=== PATIENT | male | born 1955 | race Caucasian/White ===

== ENCOUNTER 2019-01-28 21:48 | Inpatient (IN) | payer MEDICAID, OTHER ==
[~2019-01-28] VITALS: Ht 177.8 cm; Wt 80.8 kg
[2019-01-28 22:03] VITALS: Ht 177.8 cm; Wt 80.8 kg
[2019-01-28] MEDS ORDERED: SOD CHLORIDE 0.9% 500 ML IV STA (22:05)
[2019-01-28] MEDS ORDERED: ONDANSETRON 4 MG INJ IV STA (22:05)
[2019-01-28] MEDS ORDERED: morphine 4 MG/ML VIAL IV STA (22:05)
[2019-01-29] VITALS (13 sets, daily range): BP systolic 110–125; BP diastolic 53–78; PULSE 75–90; RESP 18–20
[2019-01-29] MEDS ORDERED: DEXTROSE 5%-0.45% NACL 1,000 ML IV SCH (04:44)
[2019-01-29] MEDS ORDERED: NACL 0.9% 3 ML SYG IV SCH (05:00)
[2019-01-29] MEDS ORDERED: ALBUTEROL/IPRATROPIUM (NEB) 3 ML AMP HHN PRN (05:00)
[2019-01-29] MEDS ORDERED: ONDANSETRON 4 MG INJ IV PRN (05:00)
[2019-01-29] MEDS: morphine 2 MG INJ IV PRN (06:25)
[2019-01-29] MEDS: DEXTROSE 5%-0.9% NACL 1,000 ML IV SCH ×2 (06:25→17:06)
--- NOTE | 2019-01-29 06:42 | HP ---
Date/Time of Note Date/Time of Note DATE: 01/29/19 TIME: 06:35 Assessment/Plan VTE Prophylaxis Pharmacological prophylaxis: heparin Lines/Catheters IV Catheter Type (from Nrs): PORTHA-CATH Urinary Cath still in place: No Assessment/Plan Assessment/Plan 1. 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 He does have a pigtail placed for ascites. -CT shows free intraperitoneal air. ?2/2 pigtail placement VS although perforated hollow viscus not excluded. Lipase is also elevated and CT suggestive of acute pancreatitis -will keep n.p.o. for now -Pain management -GI and surgical consult 2. Adenocarcinoma, of "my lymph nodes": CT shows solid lung nodule, ? Metastasis -pt has a right portacath -Oncology consult 3. Acute pancreatitis: -Keep n.p.o. with IV fluid -Pain management -See #1 4. Acute renal insufficiency -IV fluid -Renal ultrasound -Urine electrolytes -Nephrology consult 5. Metabolic acidosis: Secondary to #4 6. decompensated liver cirrhosis with recurrent ascites -pt has pigtail, which nurse should drain everyday Result Diagram: 01/29/19 0526 01/28/19 2240 Results 24hrs Laboratory Tests Test 01/28/19 22:40 01/29/19 01:45 01/29/19 05:26 White Blood Count 14.7 H 13.9 H Red Blood Count 3.46 L 3.21 L Hemoglobin 10.2 L 9.5 L Hematocrit 29.9 L 27.6 L Mean Corpuscular Volume 86.4 86.0 Mean Corpuscular Hemoglobin 29.5 29.6 Mean Corpuscular Hemoglobin Concent 34.1 34.4 Red Cell Distribution Width 16.5 H 16.3 H Platelet Count 99 L 92 L Mean Platelet Volume 9.4 9.7 Immature Granulocytes % 4.800 H 2.700 H Neutrophils % 75.5 75.5 Lymphocytes % 2.8 L 3.2 L Monocytes % 12.8 H 14.2 H Eosinophils % 3.6 4.0 Basophils % 0.5 0.4 Nucleated Red Blood Cells % 0.0 0.0 Immature Granulocytes # 0.700 H 0.370 H Neutrophils # 11.1 H 10.5 H Lymphocytes # 0.4 L 0.4 L Monocytes # 1.9 H 2.0 H Eosinophils # 0.5 0.6 H Basophils # 0.1 0.1 Nucleated Red Blood Cells # 0.0 0.0 Prothrombin Time 14.2 Prothrombin Time Ratio 1.1 INR International Normalized Ratio 1.09 Activated Partial Thromboplast Time 33.2 Sodium Level 126 L Potassium Level 5.6 H Chloride Level 95 L Carbon Dioxide Level 13 L Anion Gap 18 H Blood Urea Nitrogen 70 H Creatinine 1.41 H Est Glomerular Filtrat Rate mL/min 51 L Glucose Level 100 Calcium Level 9.1 Total Bilirubin 0.7 Direct Bilirubin 0.00 Indirect Bilirubin 0.7 Aspartate Amino Transf (AST/SGOT) 85 H Alanine Aminotransferase (ALT/SGPT) 37 Alkaline Phosphatase 134 H Total Protein 6.9 Albumin 3.8 Globulin 3.10 Albumin/Globulin Ratio 1.22 Lipase 412 H Urine Color YELLOW Urine Clarity CLEAR Urine pH 5.0 Urine Specific [place] 1.015 Urine Ketones NEGATIVE Urine Nitrite NEGATIVE Urine Bilirubin NEGATIVE Urine Urobilinogen NEGATIVE Urine Leukocyte Esterase NEGATIVE Urine Hemoglobin NEGATIVE Urine Glucose NEGATIVE Urine Total Protein NEGATIVE HPI/ROS Admit Date/Time Admit Date/Time Jan 29, 2019 at 02:02 Hx of Present Illness This is an 63-year-old quadriplegic male with a history of liver cirrhosis with recurrent ascites requiring pigtail placement, , adenocarcinoma (per patient of his lymph nodes, diagnosed 5 years ago) who presented to ER complaining of abdominal pain. Patient does have a chronic abdominal pain, which acutely worsened. The pain is diffuse. Also reported abdominal distention. He said about 2L of ascites fluid is drained from his pigtail every day. 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 Labs in the ER shows sodium of 126, potassium 5.6, bicarb 13, creatinine 1.4, BUN 70. Lipase around 400, AST 85. WBC almost 15,000. When he presented to ER, CT abdomen/pelvis shows the followin. Cirrhotic liver with splenomegaly indicating portal hypertension. 2. 8.1 mm solid nodule medial inferior left lower lobe. 3. 10 mm mass versus noncalcified gallstone in the gallbladder. 4. Atrophic pancreas with acute pancreatitis enlarged peripancreatic lymph nodes. 5. Intraperitoneal catheter, terminating in the right lateral pelvis. 6. Free intraperitoneal air. Is also air in and around the umbilicus. Intraper itoneal air may be due to recent intraperitoneal catheter placement. Perforated hollow viscus not excluded. 7. Marked retroperitoneal adenopathy. Consider lymphoma. 8. Small amount of free fluid adjacent to the liver and posterior spleen. 9. Edema versus inflammatory stranding adjacent to the sigmoid colon. No significant diverticulosis. 10. Findings suspicious for proctitis with maxi rectal inflammatory stranding. PMH/Family/Social Past Medical History Past Surgical History Past Surgical Hx: other (see hpi) Family History Significant Family History: other Social History Smoking Status: Unknown if ever smoked Drug Use: other Exam Constitutional: other (no acute distress) Eyes: EOMI, PERRL Neck: supple Respiratory: normal air movement Cardiovascular: nl pulses Gastrointestinal: soft Extremities: normal pulses Medications Current Medications IV Flush (NS 3 ml) 3 ml PER PROTOCOL IV ; Start 01/29/19 at 05:00 Ondansetron HCl (Zofran Inj) 4 mg Q6H PRN IV NAUSEA/VOMITING; Start 01/29/19 at 05:00 Morphine Sulfate (morphine) 2 mg Q4H PRN IV .PAIN 7-10 Last administered on 01/29/19at 06:25; Admin Dose 2 MG; Start 01/29/19 at 05:00 Albuterol/ Ipratropium (Duoneb) 3 ml Q2H RESP THERAPY PRN HHN SHORTNESS OF BREATH; Start 01/29/19 at 05:00 Dextrose/Sodium Chloride 1,000 ml @ 100 mls/hr Q10H IV Last administered on at 06:25; Admin Dose 100 MLS/HR; Start 01/29/19 at 05:00 Coded Allergies: sulfamethoxazole (Verified Allergy, Unknown, 01/28/19) trimethoprim (Verified Allergy, Unknown, 01/28/19) Social History Smoking Status: Never smoker Exam/Review of Systems Vital Signs Vitals Vital Signs Date Temp Pulse Resp B/P (MAP) Pulse Ox O2 O2 Flow FiO2 Time Delivery Rate 01/29/19 97.8 85 18 110/53 97 04:51 (72) 01/29/19 Room Air 03:49 Exam Gastrointestinal: other (pigtail in place) MAVIS BINGHAM MD Jan 29, 2019 06:42
[2019-01-29] MEDS ORDERED: FUROSEMIDE 20 MG INJ IV ONE (11:00)
[2019-01-29] MEDS: RIFAXIMIN 550 MG TAB PO SCH ×2 (12:34→22:19)
[2019-01-29] MEDS: CEFTRIAXONE 1 GM/50 ML (PMX) 50 ML IVPB SCH (12:40)
--- NOTE | 2019-01-29 14:43 | PN ---
Date/Time of Note Date/Time of Note DATE: 01/29/19 TIME: 14:34 Assessment/Plan VTE Prophylaxis Risk score (from [facility] [place])>0 risk: 10 SCD applied (from [facility] [place]): Yes Pharmacological prophylaxis: NA/contraindicated Pharm contraindication: liver dx Lines/Catheters [facility]from [facility] portacath Urinary Cath still in place: No Assessment/Plan Hospital Course 1. Abdominal pain likely secondary to pancreatitis and/or SBP Patient does have a history of peritonitis in the past and does have an intraperitoneal catheter for recurrent ascites Follow-up on ascitic fluid culture Empiric Rocephin 2. History of lymphoma Patient does have a Port-A-Cath and receives chemotherapy No indication for inpatient oncological consultation 3. Acute pancreatitis-idiopathic Unclear etiology but patient does have enlarged lymph nodes adjacent to the pancreas, patient is also on chemotherapy Patient denies alcohol abuse N.p.o. and IV fluids Pain control 4. Acute renal insufficiency likely related to cirrhosis and sepsis Continue IV fluids Nephrology consultation 5. Sepsis likely secondary to peritonitis Empiric Rocephin 6. 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 Ammonia level is normal but patient does seem lethargic, patient does not tolerate lactulose but does take rifaximin and so will continue new Prophylaxis: SCDs Result Diagram: 01/29/1952501/29/19525 Results 24hrs Laboratory Tests Test 01/28/19 22:40 01/29/19 01:45 01/29/19 05:26 01/29/19 11:16 White Blood Count 14.7 H 13.9 H Red Blood Count 3.46 L 3.21 L Hemoglobin 10.2 L 9.5 L Hematocrit 29.9 L 27.6 L Mean Corpuscular 86.4 86.0 Volume Mean Corpuscular 29.5 29.6 Hemoglobin Mean Corpuscular 34.1 34.4 Hemoglobin Concent Red Cell 16.5 H 16.3 H Distribution Width Platelet Count 99 L 92 L Mean Platelet Volume 9.4 9.7 Immature 4.800 H 2.700 H Granulocytes % Neutrophils % 75.5 75.5 Lymphocytes % 2.8 L 3.2 L Monocytes % 12.8 H 14.2 H Eosinophils % 3.6 4.0 Basophils % 0.5 0.4 Nucleated Red Blood 0.0 0.0 Cells % Immature 0.700 H 0.370 H Granulocytes # Neutrophils # 11.1 H 10.5 H Lymphocytes # 0.4 L 0.4 L Monocytes # 1.9 H 2.0 H Eosinophils # 0.5 0.6 H Basophils # 0.1 0.1 Nucleated Red Blood 0.0 0.0 Cells # Prothrombin Time 14.2 Prothrombin Time 1.1 Ratio INR International 1.09 Normalized Ratio Activated 33.2 Partial Thromboplast Time Sodium Level 126 L 127 L Potassium Level 5.6 H 5.7 H Chloride Level 95 L 98 Carbon Dioxide Level 13 L 16 L Anion Gap 18 H 13 Blood Urea Nitrogen 70 H 67 H Creatinine 1.41 H 1.31 H Est Glomerular 51 L 55 L Filtrat Rate mL/min Glucose Level 100 97 Calcium Level 9.1 8.8 Total Bilirubin 0.7 0.8 Direct Bilirubin 0.00 0.00 Indirect Bilirubin 0.7 0.8 Aspartate Amino 85 H 78 H Transf (AST/SGOT) Alanine 37 33 Aminotransferase (AL T/SGPT) Alkaline Phosphatase 134 H 115 Total Protein 6.9 6.4 Albumin 3.8 3.4 Globulin 3.10 3.00 Albumin/Globulin 1.22 1.13 Ratio Lipase 412 H Urine Color YELLOW Urine Clarity CLEAR Urine pH 5.0 Urine Specific 1.015 [place] Urine Ketones NEGATIVE Urine Nitrite NEGATIVE Urine Bilirubin NEGATIVE Urine Urobilinogen NEGATIVE Urine Leukocyte NEGATIVE Esterase Urine Hemoglobin NEGATIVE Urine Glucose NEGATIVE Urine Total Protein NEGATIVE Osmolality 276 L Uric Acid 11.9 H Magnesium Level 1.8 Ammonia < 9 L Subjective 24 Hr Interval Summary Gastrointestinal: pain Exam/Review of Systems Exam Vitals Vital Signs Date Temp Pulse Resp B/P (MAP) Pulse Ox O2 O2 Flow FiO2 Time Delivery Rate 01/29/19 78 12:55 01/29/19 97.3 20 125/67 99 12:42 (86) 01/29/19 Room Air 03:49 Constitutional: alert, oriented Respiratory: clear to auscultation Cardiovascular: regular rate and rhythm Gastrointestinal: distended Musculoskeletal: nl extremities to inspection Results Results 24hrs Laboratory Tests Test 01/28/19 22:40 01/29/19 01:45 01/29/19 05:26 01/29/19 11:16 White Blood Count 14.7 H 13.9 H Red Blood Count 3.46 L 3.21 L Hemoglobin 10.2 L 9.5 L Hematocrit 29.9 L 27.6 L Mean Corpuscular 86.4 86.0 Volume Mean Corpuscular 29.5 29.6 Hemoglobin Mean Corpuscular 34.1 34.4 Hemoglobin Concent Red Cell 16.5 H 16.3 H Distribution Width Platelet Count 99 L 92 L Mean Platelet Volume 9.4 9.7 Immature 4.800 H 2.700 H Granulocytes % Neutrophils % 75.5 75.5 Lymphocytes % 2.8 L 3.2 L Monocytes % 12.8 H 14.2 H Eosinophils % 3.6 4.0 Basophils % 0.5 0.4 Nucleated Red Blood 0.0 0.0 Cells % Immature 0.700 H 0.370 H Granulocytes # Neutrophils # 11.1 H 10.5 H Lymphocytes # 0.4 L 0.4 L Monocytes # 1.9 H 2.0 H Eosinophils # 0.5 0.6 H Basophils # 0.1 0.1 Nucleated Red Blood 0.0 0.0 Cells # Prothrombin Time 14.2 Prothrombin Time 1.1 Ratio INR International 1.09 Normalized Ratio Activated 33.2 Partial Thromboplast Time Sodium Level 126 L 127 L Potassium Level 5.6 H 5.7 H Chloride Level 95 L 98 Carbon Dioxide Level 13 L 16 L Anion Gap 18 H 13 Blood Urea Nitrogen 70 H 67 H Creatinine 1.41 H 1.31 H Est Glomerular 51 L 55 L Filtrat Rate mL/min Glucose Level 100 97 Calcium Level 9.1 8.8 Total Bilirubin 0.7 0.8 Direct Bilirubin 0.00 0.00 Indirect Bilirubin 0.7 0.8 Aspartate Amino 85 H 78 H Transf (AST/SGOT) Alanine 37 33 Aminotransferase (AL T/SGPT) Alkaline Phosphatase 134 H 115 Total Protein 6.9 6.4 Albumin 3.8 3.4 Globulin 3.10 3.00 Albumin/Globulin 1.22 1.13 Ratio Lipase 412 H Urine Color YELLOW Urine Clarity CLEAR Urine pH 5.0 Urine Specific 1.015 [place] Urine Ketones NEGATIVE Urine Nitrite NEGATIVE Urine Bilirubin NEGATIVE Urine Urobilinogen NEGATIVE Urine Leukocyte NEGATIVE Esterase Urine Hemoglobin NEGATIVE Urine Glucose NEGATIVE Urine Total Protein NEGATIVE Osmolality 276 L Uric Acid 11.9 H Magnesium Level 1.8 Ammonia < 9 L Medications Medication Current Medications IV Flush (NS 3 ml) 3 ml PER PROTOCOL IV ; Start 01/29/19 at 05:00 Ondansetron HCl (Zofran Inj) 4 mg Q6H PRN IV NAUSEA/VOMITING; Start 01/29/19 at 05:00 Morphine Sulfate (morphine) 2 mg Q4H PRN IV .PAIN 7-10 Last administered on 01/29/19at 06:25; Admin Dose 2 MG; Start 01/29/19 at 05:00 Albuterol/ Ipratropium (Duoneb) 3 ml Q2H RESP THERAPY PRN HHN SHORTNESS OF BREATH; Start 01/29/19 at 05:00 Dextrose/Sodium Chloride 1,000 ml @ 100 mls/hr Q10H IV Last administered on 01/29/19at 06:25; Admin Dose 100 MLS/HR; Start 01/29/19 at 05:00 Influenza Virus Vaccine Quadrival (Fluzone) 0.5 ml ONCE ONCE IM* ; Start 01/30/19 at 10:00; Stop 01/30/19 at 10:01 Ceftriaxone Sodium 50 ml @ 100 mls/hr Q24H IVPB Last administered on 01/29/19at 12:40; Admin Dose 100 MLS/HR; Start 01/29/19 at 11:00 Rifaximin (Xifaxan) 550 mg BID PO Last administered on 01/29/19at 12:34; Admin Dose 550 MG; Start 01/29/19 at 11:00 BATSHEVA DENIS Jan 29, 2019 14:43
--- NOTE | 2019-01-29 18:14 | CONS ---
DATE OF ADMISSION: 01/29/2019 DATE OF CONSULTATION: TYPE OF CONSULTATION: Nephrology. REASON FOR CONSULTATION: Acute kidney injury, hyperkalemia. PHYSICIAN REQUESTING CONSULT: Zack Julien MD HISTORY OF PRESENT ILLNESS: This is a 63-year-old male with a past medical history of quadriplegia, history of liver cirrhosis, history of adenocarcinoma, history of recurrent ascites, status post pigt ail placement who presents to an emergency room with abdominal pain. The patient has a history of ch ronic abdominal pain, but states that recently it has worsened. The patient also reports abdominal d istention. About 2 liters of ascitic fluid has been drained every day from his pigtail. The patient states that he developed liver cirrhosis after an episode mercury poisoning. The patient's laborato ry data in the emergency room showed a sodium of 126, potassium 5.6, bicarbonate 13, BUN 70, creatini ne 1.4 and white count 15,000. The patient has a CT scan of abdomen and pelvis which showed evidence of cirrhotic liver, splenomegaly, portal hypertension, 10 mm mass in the gallbladder, 8.1 mm medial inferior left lower lobe nodule, atrophic pancreas with acute pancreatitis, intraperitoneal catheter, small amount of free fluid. In the emergency room, the patient was given IV fluids, started on IV a ntibiotics and admitted to telemetry. In terms of patient's renal history, the patient denies having a prior history of acute kidney injury . The patient states that he has been dehydrated in the past. He denies any frothy urine. Denies a ny rashes. Denies any hematuria, hemoptysis or hematochezia. PAST MEDICAL HISTORY: As stated above, history of adenocarcinoma, history of cirrhosis, history of q uestionable quadriplegia. SOCIAL HISTORY: Does not actively drink, smoke or do drugs. ALLERGIES: PLEASE SEE LIST. PAST SURGICAL HISTORY: Status post pigtail placement. FAMILY HISTORY: No family history of kidney disease. MEDICATIONS: Have been reviewed. REVIEW OF SYSTEMS: A 14-point review of systems conducted. Pertinent positives stated in HPI, other munguia negative. PHYSICAL EXAMINATION: VITAL SIGNS: Blood pressure is 119/66, respiration 18, pulse 82, temperature 98.0. HEENT: Head is normocephalic. NECK: Supple. HEART: Regular rate. LUNGS: Show diminished breath sounds at base. ABDOMEN: Soft, positive tenderness to palpation. Positive pigtail catheter noted. EXTREMITIES: Negative for clubbing, cyanosis. No edema. DERMATOLOGIC: No rashes. MUSCULOSKELETAL: No joint effusions. NEUROLOGIC: The patient has limited movement of his upper extremities and lower extremities. Streng th is minimal in upper and lower extremities. LABORATORY DATA: Show a sodium of 127, potassium 5.7, chloride 98, bicarbonate 16, BUN 67, creatinin e 1.31. . Osmolality 227. Initial urinalysis was bland. INR within normal limits. White cou nt 13.9, hemoglobin 9.5, platelet count is 92. IMAGING STUDIES: Reviewed. Renal ultrasound was reviewed. ASSESSMENT AND PLAN: This is a 63-year-old male who presents with: 1. Nonoliguric acute kidney injury with unknown baseline creatinine. Etiology of acute kidney injur y is unclear, possibly multifactorial secondary to sepsis, volume depletion. Possibility of hepatore nal syndrome is a consideration in a patient with liver cirrhosis and acute kidney injury. However, this is a diagnosis of exclusion and cannot be made at this moment. Plan at this point is to do a fu ll evaluation. We will repeat a UA with microanalysis, evaluate the urine under microscopy to see if there is any evidence of tubular injury. We will check urine electrolytes. We would continue volum e expansion with IV fluids. Otherwise, continue current treatment plan, supportive care, renally dos e all meds. 2. Hyponatremia. Etiology is multifactorial secondary to acute kidney injury causing decreased free water urinary excretion. Plan is to continue gentle IV hydration. We would limit free water intake and monitor sodium levels closely. 3. Hyperkalemia. Etiology is possibly multifactorial secondary to acute kidney injury, unclear if t he patient was previously on Aldactone. Plan is to continue to monitor potassium levels. We will co ntinue low-potassium diet. Give Kayexalate as needed. Monitor closely. Please note that a metaboli c acidemia may also be contributing factor. We will check an ABG to see if the patient is appropriat alfredito compensated. If the patient does have acidemia, we will give bicarbonate therapy. 4. Acidosis. Etiology may be secondary to acute kidney injury versus compensatory due to underlying cirrhosis. We will check an ABG and monitor. 5. Anemia. Monitor hemoglobin and hematocrit levels. 6. Abdominal pain, likely secondary to pancreatitis, possible spontaneous bacterial peritonitis. Co ntinue IV hydration. Continue antibiotic therapy. Continue pain control. 7. History of lymphoma, questionable adenocarcinoma. The patient has Port-A-Cath, receiving chemoth erapy. Continue to monitor. 8. Acute pancreatitis. Continue current medical management. Continue IV hydration. 9. History of liver cirrhosis with recurrent ascites. The patient is currently decompensated. Cont inue medical management. Continue to monitor. 10. Sepsis secondary to possible spontaneous peritonitis. Continue antibiotic therapy and IV hydrat ion. Thank you, Dr. Julien, for this interesting consult. It will be a pleasure to follow patient with y ou throughout the hospital course. Dictated By: FLORIAN WATSON DO NR/NTS Conf#: [id number] DID#: [id number] CC: MAVIS BINGHAM MD; ZACK JULIEN MD;*End*
[2019-01-29] MEDS: HYDROmorphONE 0.5 MG/0.5 ML SYG IV PRN (22:19)
[2019-01-30] VITALS (11 sets, daily range): BP systolic 103–135; BP diastolic 66–84; PULSE 80–108; RESP 18
[2019-01-30] MEDS: DEXTROSE 5%-0.9% NACL 1,000 ML IV SCH ×3 (02:31→21:20)
[2019-01-30] MEDS: HYDROmorphONE 0.5 MG/0.5 ML SYG IV PRN ×7 (02:31→23:56)
[2019-01-30] MEDS ORDERED: MAGNESIUM SULFATE 3 GM in DEXTROSE 5% 100 ML IVPB ONE (08:30)
[2019-01-30] MEDS ORDERED: INFLUENZA VIRUS VACCINE 0.5 ML (DISPENSING) IM* ONE (10:00)
[2019-01-30] MEDS: RIFAXIMIN 550 MG TAB PO SCH ×2 (10:04→20:34)
[2019-01-30] MEDS ORDERED: MAGNESIUM SULFATE 2 GM/50 ML 50 ML IVPB ONE (10:30)
--- NOTE | 2019-01-30 10:46 | PN ---
DATE: 01/30/2019 SUBJECTIVE: The patient is stable, no events overnight. The patient continues to have abdominal denise n. Urinary output has been adequate. No other events noted. OBJECTIVE: VITAL SIGNS: Blood pressure is 114/66, respirations 18, pulse 86, temperature 97.5. HEENT: Head is normocephalic. NECK: Supple. HEART: Regular rate. LUNGS: Show diminished breath sounds at the base. ABDOMEN: Soft, positive tenderness to palpation. EXTREMITIES: Negative for clubbing, cyanosis, no edema. DERMATOLOGIC: No rashes. MUSCULOSKELETAL: No joint effusion. NEUROLOGIC: No change in exam. MEDICATIONS: Reviewed. LABORATORY DATA: Shows sodium 138, potassium 4.9, BUN 51, creatinine 1.44, magnesium is 1.6. White count 11.3, hemoglobin 9.7, platelet count is 88. Urinalysis was reviewed. The patient has FENa les s than 1%. Urinalysis otherwise bland. ASSESSMENT AND PLAN: 1. Nonoliguric acute kidney injury with unknown baseline creatinine. Etiology is likely secondary t o hemodynamics, possible sepsis. The patient's urinalysis was reviewed with bland sediment. The pat ient has FENa less than 1%, no significant proteinuria. Renal ultrasound was reviewed, unremarkable. The patient's renal function has been stable in the last 24 hours. At this point, we would continu e current treatment plan. Continue gentle IV hydration. Continue supportive care, renally dose all medicines. 2. Hypernatremia secondary to acute kidney injury causing decreased free water urinary excretion. C ontinue IV hydration and limit free water intake. 3. Hyperkalemia, resolved. Etiology is secondary to acute kidney injury. Continue to monitor. 4. Acidosis. Etiology may be secondary to acute kidney injury versus compensatory due to underlying cirrhosis. Continue to monitor bicarbonate levels, consider checking ABG. 5. Anemia. Monitor hemoglobin and hematocrit levels. 6. Abdominal pain secondary to pancreatitis, possible SBP. Continue IV hydration, antibiotic therap y, continue pain control. 7. History of lymphoma, questionable adenocarcinoma. The patient is status post Port-A-Cath receivi ng chemotherapy. Continue to monitor. 8. Acute pancreatitis. Continue medical management. Continue IV hydration. 9. History of cirrhosis with recurrent ascites. The patient is status post pigtail placement for dr medina of ascites currently decompensated. Continue to monitor. 10. Sepsis secondary to SBP. Continue antibiotic therapy, IV hydration. Dictated By: FLORIAN WATSON DO NR/NTS Conf#: [id number] DID#: [id number] CC: MAVIS BINGHAM MD; BATSHEVA DENIS MD;*EndCC*
[2019-01-30] MEDS: morphine 2 MG INJ IV PRN (11:41)
[2019-01-30] MEDS: CEFTRIAXONE 1 GM/50 ML (PMX) 50 ML IVPB SCH (13:06)
--- NOTE | 2019-01-30 14:05 | PN ---
Date/Time of Note Date/Time of Note DATE: 01/30/19 TIME: 14:03 Assessment/Plan VTE Prophylaxis Risk score (from Nsg)>0 risk: 8 Pharmacological prophylaxis: NA/contraindicated Pharm contraindication: liver dx Lines/Catheters IV Catheter Type (from Nrs): portacath Urinary Cath still in place: No Assessment/Plan Hospital Course 1. Abdominal pain likely secondary to pancreatitis and/or SBP Patient does have a history of peritonitis in the past and does have an intraperitoneal catheter for recurrent ascites Follow-up on ascitic fluid culture Empiric Rocephin 2. History of lymphoma Patient does have a Port-A-Cath and receives chemotherapy No indication for inpatient oncological consultation 3. Acute pancreatitis-idiopathic Unclear etiology but patient does have enlarged lymph nodes adjacent to the pancreas, patient is also on chemotherapy Patient denies alcohol abuse N.p.o. and IV fluids Pain control 4. Acute renal insufficiency likely prerenal and related to cirrhosis and sepsis Continue IV fluids Nephrology consultation appreciated 5. Sepsis likely secondary to peritonitis Empiric Rocephin 6. 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 Ammonia level is normal but patient does seem lethargic, patient does not tolerate lactulose but does take rifaximin and so will continue new Prophylaxis: SCDs Result Diagram: 01/30/19 0548 01/30/19 0548 Results 24hrs Laboratory Tests Test 01/30/19 02:00 01/30/19 05:48 Urine Color YELLOW Urine Clarity CLEAR Urine pH 5.0 Urine Specific [place] 1.013 Urine Ketones NEGATIVE Urine Nitrite NEGATIVE Urine Bilirubin NEGATIVE Urine Urobilinogen NEGATIVE Urine Leukocyte Esterase NEGATIVE Urine Hemoglobin NEGATIVE Urine Osmolality 422 Urine Random Creatinine 65.26 Urine Random Sodium < 13 L Urine Random Potassium 29.6 Urine Glucose NEGATIVE Urine Total Protein 13.0 H White Blood Count 11.3 H Red Blood Count 3.29 L Hemoglobin 9.7 L Hematocrit 28.8 L Mean Corpuscular Volume 87.5 Mean Corpuscular Hemoglobin 29.5 Mean Corpuscular Hemoglobin Concent 33.7 Red Cell Distribution Width 16.6 H Platelet Count 88 L Mean Platelet Volume 9.5 Immature Granulocytes % 3.500 H Neutrophils % 70.8 Lymphocytes % 5.2 L Monocytes % 15.2 H Eosinophils % 4.9 Basophils % 0.4 Nucleated Red Blood Cells % 0.0 Immature Granulocytes # 0.400 H Neutrophils # 8.0 H Lymphocytes # 0.6 L Monocytes # 1.7 H Eosinophils # 0.6 H Basophils # 0.0 Nucleated Red Blood Cells # 0.0 Sodium Level 128 L Potassium Level 4.9 Chloride Level 100 Carbon Dioxide Level 16 L Anion Gap 12 Blood Urea Nitrogen 51 H Creatinine 1.44 H Est Glomerular Filtrat Rate mL/min 50 L Glucose Level 209 # Calcium Level 8.0 L Phosphorus Level 4.0 Magnesium Level 1.6 L Subjective 24 Hr Interval Summary Gastrointestinal: pain Exam/Review of Systems Exam Vitals Vital Signs Date Temp Pulse Resp B/P (MAP) Pulse Ox O2 O2 Flow FiO2 Time Delivery Rate 01/30/19 107 12:00 01/30/19 98.7 18 135/67 99 Room Air 11:05 (89) Intake and Output 01/29/19 01/29/19 01/30/19 1515:00 23:00 07:00 IntakeIntake Total 800 ml 400 ml OutputOutput Total 900 ml 250 ml BalanceBalance -100 ml 150 ml Constitutional: alert, oriented Respiratory: clear to auscultation Cardiovascular: regular rate and rhythm Gastrointestinal: soft, distended Musculoskeletal: nl extremities to inspection Results Results 24hrs Laboratory Tests Test 01/30/19 02:00 01/30/19 05:48 Urine Color YELLOW Urine Clarity CLEAR Urine pH 5.0 Urine Specific [place] 1.013 Urine Ketones NEGATIVE Urine Nitrite NEGATIVE Urine Bilirubin NEGATIVE Urine Urobilinogen NEGATIVE Urine Leukocyte Esterase NEGATIVE Urine Hemoglobin NEGATIVE Urine Osmolality 422 Urine Random Creatinine 65.26 Urine Random Sodium < 13 L Urine Random Potassium 29.6 Urine Glucose NEGATIVE Urine Total Protein 13.0 H White Blood Count 11.3 H Red Blood Count 3.29 L Hemoglobin 9.7 L Hematocrit 28.8 L Mean Corpuscular Volume 87.5 Mean Corpuscular Hemoglobin 29.5 Mean Corpuscular Hemoglobin Concent 33.7 Red Cell Distribution Width 16.6 H Platelet Count 88 L Mean Platelet Volume 9.5 Immature Granulocytes % 3.500 H Neutrophils % 70.8 Lymphocytes % 5.2 L Monocytes % 15.2 H Eosinophils % 4.9 Basophils % 0.4 Nucleated Red Blood Cells % 0.0 Immature Granulocytes # 0.400 H Neutrophils # 8.0 H Lymphocytes # 0.6 L Monocytes # 1.7 H Eosinophils # 0.6 H Basophils # 0.0 Nucleated Red Blood Cells # 0.0 Sodium Level 128 L Potassium Level 4.9 Chloride Level 100 Carbon Dioxide Level 16 L Anion Gap 12 Blood Urea Nitrogen 51 H Creatinine 1.44 H Est Glomerular Filtrat Rate mL/min 50 L Glucose Level 209 # Calcium Level 8.0 L Phosphorus Level 4.0 Magnesium Level 1.6 L Medications Medication Current Medications IV Flush (NS 3 ml) 3 ml PER PROTOCOL IV ; Start 01/29/19 at 05:00 Ondansetron HCl (Zofran Inj) 4 mg Q6H PRN IV NAUSEA/VOMITING; Start 01/29/19 at 05:00 Morphine Sulfate (morphine) 2 mg Q4H PRN IV .PAIN 7-10 Last administered on 01/30/19 11:41; Admin Dose 2 MG; Start 01/29/19 at 05:00 Albuterol/ Ipratropium (Duoneb) 3 ml Q2H RESP THERAPY PRN HHN SHORTNESS OF BREATH; Start 01/29/19 at 05:00 Dextrose/Sodium Chloride 1,000 ml @ 100 mls/hr Q10H IV Last administered on 01/30/19 02:31; Admin Dose 100 MLS/HR; Start 01/29/19 at 05:00 Ceftriaxone Sodium 50 ml @ 100 mls/hr Q24H IVPB Last administered on 01/30/19 13:06; Admin Dose 100 MLS/HR; Start 01/29/19 at 11:00 Rifaximin (Xifaxan) 550 mg BID PO Last administered on 01/30/19 10:04; Admin Dose 550 MG; Start 01/29/19 at 11:00 Fentanyl (Duragesic 100 Mcg/Hr Patch) 1 patch Q3D TRANSDERM Last administered on 01/29/19 16:36; Admin Dose 1 PATCH; Start 01/29/19 at 16:00 Hydromorphone HCl (Dilaudid) 0.5 mg Q3H PRN IV SEVERE PAIN LEVEL 7-10 Last administered on 01/30/19 13:05; Admin Dose 0.5 MG; Start 01/29/19 at 22:00 BATSHEVA DENIS Jan 30, 2019 14:05
[2019-01-31] VITALS (9 sets, daily range): BP systolic 108–174; BP diastolic 67–94; PULSE 66–106; RESP 20–22
[2019-01-31] MEDS: HYDROmorphONE 0.5 MG/0.5 ML SYG IV PRN ×4 (04:04→17:11)
[2019-01-31] MEDS: DEXTROSE 5%-0.9% NACL 1,000 ML IV SCH (06:09)
[2019-01-31] MEDS: RIFAXIMIN 550 MG TAB PO SCH (08:53)
[2019-01-31] MEDS: morphine 2 MG INJ IV PRN (10:51)
[2019-01-31] MEDS: CEFTRIAXONE 1 GM/50 ML (PMX) 50 ML IVPB SCH (10:51)
--- NOTE | 2019-01-31 12:19 | PDOCDIS ---
Discharge Instructions CONDITION [id number] Patient Condition: [id number] Good HOME CARE INSTRUCTIONS: [id number] Diet Instructions: [id number] Reduced Sodium ACTIVITY: [id number] Activity Restrictions: [id number] No Restrictions FOLLOW UP/APPOINTMENTS Follow-up Plan Follow-up with your PCP and oncologist as scheduled BATSHEVA DENIS Jan 31, 2019 12:19
[2019-01-31] MEDS ORDERED: CIPR500T4 PO (14:52)
--- NOTE | 2019-01-31 14:58 | DS ---
Date/Time of Note Date/Time of Note DATE: 01/31/19 TIME: 14:52 Discharge Summary Admission/Discharge Info Admit Date/Time Jan 29, 2019 at 02:37 Discharge Date/Time January 31, 2019 Discharge Diagnosis 1. Abdominal pain likely secondary to pancreatitis and/or SBP-improved Patient does have a history of peritonitis in the past and does have an intraperitoneal catheter for recurrent ascites, patient drains 2 L out a day Ascitic fluid culture does show rare enterococcus species Status post Rocephin in house, DC with Cipro p.o. 2. History of lymphoma Patient does have a Port-A-Cath and receives chemotherapy No indication for inpatient oncological consultation 3. Acute pancreatitis-idiopathic Lipase has normalized Unclear etiology but patient does have enlarged lymph nodes adjacent to the pancreas, patient is also on chemotherapy Patient denies alcohol abuse N.p.o. and IV fluids Pain control 4. Acute renal insufficiency likely prerenal and related to cirrhosis and sepsis Continue IV fluids Nephrology consultation appreciated 5. Sepsis likely secondary to peritonitis-resolved Status post empiric Rocephin 6. 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 Debility secondary to comorbidities as well as chronic flexure of both upper extremities Patient resides in an assisted care facility Patient has had extensive neurological workup in the past for his bilateral upper extremity palsy with no clear etiology detected DC back to facility Patient Condition: Good Hospital Course Patient is a 63-year-old male with history of cirrhosis with recurrent ascites and abdominal drain placement, lymphoma and debility with chronic flexors of the upper extremities. Patient presents with abdominal pain and was noted to have pancreatitis as well as sepsis. Etiology of sepsis was likely secondary to SBP and ascitic fluid culture did come back positive for enterococcus, patient did receive empiric Rocephin and was discharged with Cipro p.o.. Patient also had acute kidney injury secondary to prerenal etiology likely from cirrhosis, nephrology consultation was appreciated. Patient was stable for DC back to assisted living, on the day of discharge patient's vitals, labs and physical exam are stable. Home Meds Active Scripts Ciprofloxacin Hcl* (Ciprofloxacin Hcl*) 500 Mg Tablet, 500 MG PO BID for 7 Days, #14 TAB Prov:BATSHEVA DENIS 01/31/19 Follow-up Plan Follow-up with your PCP and oncologist as scheduled Primary Care Provider Care Physician No Primary Time spent on discharge: > 30 minutes BATSHEVA DENIS Jan 31, 2019 14:58
--- NOTE | 2019-02-01 06:24 | PN ---
DATE: 01/31/2019 SUBJECTIVE: The patient is stable. No events overnight. No fevers, chills, nausea, vomiting. OBJECTIVE: VITAL SIGNS: Blood pressure is 108/67, respiration 22, pulse 66, temperature 97.6. HEENT: Head is normocephalic. NECK: Supple. HEART: Regular rate. LUNGS: Show diminished breath sounds at the base. ABDOMEN: Soft. Mild tenderness to palpation. No rebound or guarding. EXTREMITIES: Negative for clubbing, cyanosis, no edema. DERMATOLOGIC: No rashes. MUSCULOSKELETAL: No joint effusion. NEUROLOGIC: No change in exam. MEDICATIONS: Reviewed. LABORATORY DATA: Reviewed. CBC was reviewed. Urinalysis was reviewed. ASSESSMENT AND PLAN: 1. Oliguric acute injury with unknown baseline creatinine. Etiology of acute kidney injury is secon jessica to hemodynamics, possible sepsis. The patient's renal function has been improving with IV fluid s and antibiotic therapy. We will continue current treatment plan. 2. Hyponatremia. Etiology was multifactorial secondary to acute kidney injury in conjunction with c irrhosis causing elevated ADH levels. Will continue to monitor closely on IV fluids. Will limit [place] e water restriction, no more than 1 liter daily. 3. Hyperkalemia, resolved. 4. Acidosis secondary to acute kidney injury, possibly compensatory due to underlying cirrhosis. Co ntinue to monitor bicarbonate levels. 5. Anemia. Continue to monitor hemoglobin and hematocrit levels. 6. Abdominal pain secondary to pancreatitis as reviewed. Continue IV hydration, antibiotic therapy. 7. History of lymphoma, possible adenocarcinoma. The patient had status post Port-A-Cath receiving chemotherapy. Continue to monitor. 8. Acute pancreatitis. The patient is currently tolerating p.o. Deescalate IV fluids. 9. History of cirrhosis with recurrent ascites. Continue to monitor. The patient has pigtail place ment for drainage of underlying ascitic fluid. 10. Sepsis secondary to [employer]. Continue IV fluids and antibiotics. Dictated By: FLORIAN WATSON DO NR/NTS Conf#: [id number] DID#: [id number] CC: MAVIS BINGHAM MD;*EndCC*
== END 2019-01-31 19:23 | disposition home or self-care (01) | DRG 871 ==
LOC: E/R 21:48 → 6WM 01-29 02:02 → OBSVTOIN 01-29 02:37
PROVIDERS: ADMIT Internal Medicine; ATTEND Internal Medicine
DX: A41.9 Sepsis, unspecified organism (principal); K85.90 Acute pancreatitis without necrosis or infection, unspecified; K65.2 Spontaneous bacterial peritonitis; N17.9 Acute kidney failure, unspecified; R18.8 Other ascites; E87.0 Hyperosmolality and hypernatremia; E87.2 Acidosis; C85.90 Non-Hodgkin lymphoma, unspecified, unspecified site; K74.60 Unspecified cirrhosis of liver; E87.5 Hyperkalemia; D73.2 Chronic congestive splenomegaly; D64.9 Anemia, unspecified; C80.1 Malignant (primary) neoplasm, unspecified
CPT/HCPCS: 71045; 74176; 76775; 80048; 80053; 81003; 82043; 82140; 82436; 83690; 83735; 83930; 83935; 84100; 84133; 84155; 84300; 84560; 85025; 85610; 85730; 87070; 87102; 87116; 90686; 93005; 97161; G0378; J0696; J1170; J1940; J2270; J2405; J3475; J7040; J7042